=== PATIENT | male | born 1995 | race Caucasian/White ===

== ENCOUNTER 2016-11-28 20:11 | Emergency (ER) | payer MEDICARE | END 2016-11-28 20:59 | disposition home or self-care (01) | LOC: ER1 20:11 | DX: L03.317 Cellulitis of buttock (principal); Z88.0 Allergy status to penicillin | CPT/HCPCS: 99283 ==

== ENCOUNTER 2016-11-29 18:10 | Emergency (ER) | payer MEDICARE | END 2016-11-29 19:05 | disposition home or self-care (01) | LOC: ER1 18:10 | DX: L03.317 Cellulitis of buttock (principal) | CPT/HCPCS: 99283 ==

== ENCOUNTER → 2021-03-11 | Outpatient (CLI) | payer OTHER ==
[~2021-03-11] MED LIST: CEFUROXIME500 MG PO; IBUPROFEN800 MG PO; MEDROL4 MG PO; NORCO 5-325 TA1 EACH PO; TESSALON PERLE100 MG PO; VENTOLIN HFA 66.7 GM INH
== END ==
LOC: KOH-I 08:00
DX: M54.2 Cervicalgia (principal); R59.9 Enlarged lymph nodes, unspecified
CPT/HCPCS: 76536

== ENCOUNTER → 2021-03-31 | Outpatient (CLI) | payer OTHER | LOC: KOH-I 08:51 | DX: M54.2 Cervicalgia (principal); R59.0 Localized enlarged lymph nodes | CPT/HCPCS: 70490 ==

== ENCOUNTER 2021-12-10 01:01 | Emergency (ER) | payer OTHER | END 2021-12-10 03:09 | disposition home or self-care (01) | LOC: ER1 01:01 | DX: T78.1XXA Other adverse food reactions, not elsewhere classified, initial encounter (principal); L27.2 Dermatitis due to ingested food; I10 Essential (primary) hypertension; F17.200 Nicotine dependence, unspecified, uncomplicated | CPT/HCPCS: 96372; 99282; J0171 ==